=== PATIENT | female | born 1955 | race Caucasian/White ===

== ENCOUNTER → 2018-09-18 | Outpatient (CLI) | payer MEDICARE, OTHER | LOC: YCFC.O 11:09 | PROVIDERS: ATTEND Nurse Practitioner | DX: Z00.00 Encounter for general adult medical examination without abnormal findings (principal); I10 Essential (primary) hypertension ==

== ENCOUNTER → 2018-10-30 | Outpatient (CLI) | payer MEDICARE, OTHER ==
--- NOTE | 2018-11-02 08:41 | MAM ---
EXAM DESCRIPTION: 3D Screening BILATERAL : Digital Mammography. CLINICAL HISTORY: 62 years Female ANNUAL SCREENING . No complaints. No personal history of breast cancer. Maternal grandmother with breast cancer. Childbirth. Postmenopausal 10+ years. No HRT. Lifetime risk of developing breast cancer (Tyrer-Cuzick model)(%): 4.9. COMPARISON: Baseline study. No prior reports available. TECHNIQUE: Bilateral CC and MLO projection full-field images, digital tomosynthesis mammographic technique. Bilateral digital 2-D full-field MLO images. CAD not available for tomosynthesis or 2-D images. FINDINGS: The breast parenchymal density pattern is: Scattered areas of fibroglandular density. No skin thickening or nipple retraction. Bilateral solitary microcalcifications. Bilateral axillary lymph nodes. Lateral vascular calcifications. Group of microcalcifications lower mid lateral left breast. Focal asymmetry retroareolar right breast superior and lateral. No focal, stellate mass or density, focal asymmetry , and no suspicious microcalcifications left breast. IMPRESSION: BI-RADS CATEGORY: 0 - INCOMPLETE- Need additional imaging evaluation. FOLLOW-UP: Recall for additional imaging: Targeted right breast Retroareolar ultrasound. Optional diagnostic tomosynthesis if indicated by ultrasound images.. Written communication concerning the IMPRESSION and Follow-up, will be mailed to the patient and referring health care provider. Electronically signed by: Ryne Brady MD 11/02/2018 8:40 AM CDT
== END ==
LOC: MAMMO 08:37
PROVIDERS: ATTEND Nurse Practitioner
DX: Z12.31 Encounter for screening mammogram for malignant neoplasm of breast (principal)

== ENCOUNTER → 2018-11-07 | Outpatient (CLI) | payer MEDICARE, OTHER ==
--- NOTE | 2018-11-08 11:27 | US ---
EXAM DESCRIPTION: Breast,Right: Ultrasound CLINICAL HISTORY: 62 yearsFemaleABNORMAL MAMMO . Focal asymmetry retroareolar right breast COMPARISON: Other TECHNIQUE: Transcutaneous scanning of the right breast utilizing lynne-scale and Doppler modes. Scanning performed by the securities research analyst and Dr. Brady. FINDINGS: Ultrasound: Scanning of the retroareolar right breast. Heterogeneous of fibroglandular and fatty echoes. No dominant solid mass or distinct cyst. No parenchymal edema or large calcifications. No overlying skin changes. IMPRESSION: Benign exam. BIRAD CATEGORY: 2 BENIGN FINDINGS. RECOMMENDATIONS: FOLLOW UP: Return to routine digital bilateral mammographic screening, one year interval from October 2018. Written communication explaining the IMPRESSION and follow-up, will be mailed to the patient and referring health care provider. The FINDINGS and the FOLLOW-UP plan were reviewed in person with the patient after the examination. According to the [employer], yearly mammograms are recommended starting at age 40 and continuing as long as a woman is in good health. Any breast change noted on a breast self-exam should be reported promptly to the patient's healthcare provider. Breast MRI is recommended for women with an approximately 20-25% or greater lifetime risk of breast cancer, including women with a strong family history of breast or ovarian cancer and women who have been treated for Hodgkin's disease. A negative mammographic report should not delay tissue diagnosis in patients with significant clinical history or physical findings. Extremely dense breast tissue limits the sensitivity of digital mammography. Electronically signed by: Ryne Brady MD 11/08/2018 11:26 AM CDT
== END ==
LOC: US 13:00
PROVIDERS: ATTEND Nurse Practitioner
DX: R92.8 Other abnormal and inconclusive findings on diagnostic imaging of breast (principal)

== ENCOUNTER → 2018-11-22 | Outpatient (CLI) | payer MEDICARE, OTHER ==
--- NOTE | 2018-11-22 12:57 | RAD ---
EXAM DESCRIPTION: Hip,Left 2 Views CLINICAL HISTORY: 62 years Female, PAIN IN LEFT HIP COMPARISON: None available. FINDINGS: The visualized bones are well-mineralized.No acute fracture or dislocation. Severe left hip osteoarthritis with [id number] appearance. Enthesopathy changes of the greater trochanter and iliac crest are identified. The soft tissues appear grossly unremarkable. IMPRESSION: Severe left hip osteoarthritis with [id number] appearance. Electronically signed by: Virginia Bentley MD 11/22/2018 12:55 PM CDT
== END ==
LOC: YCFC.O 11:05
PROVIDERS: ATTEND Nurse Practitioner
DX: M16.12 Unilateral primary osteoarthritis, left hip (principal)

== ENCOUNTER → 2018-12-07 | Outpatient (CLI) | payer MEDICARE, OTHER ==
--- NOTE | 2018-12-08 20:00 | RAD ---
EXAM DESCRIPTION: Pelvis: CR/DR/XR CLINICAL HISTORY: HIP PAIN COMPARISON: Left hip radiographs 11/22/2018. TECHNIQUE: One view FINDINGS: Enthesopathy pelvis and proximal femurs. Decreased bone density. Marked narrowing of the superior left hip joint with marginal spurs. Minimal narrowing right superior hip joint with marginal spurs. Degenerative gas density in the bilateral SI joints. Bladder stimulation device abutting the right pelvic bone. L4-5 and L5-S1 spondylosis. Pubic bone offset. IMPRESSION: Bilateral hip arthrosis more advanced on the left. Also SI joint arthrosis. Pelvic bone enthesopathy. Lower lumbar spondylosis. No acute bony abnormality. Electronically signed by: Ryne Brady MD 12/08/2018 7:58 PM CDT
== END ==
LOC: RAD 08:39
PROVIDERS: ATTEND Orthopaedic Surgery
DX: M16.0 Bilateral primary osteoarthritis of hip (principal); M47.896 Other spondylosis, lumbar region; M47.897 Other spondylosis, lumbosacral region; M47.898 Other spondylosis, sacral and sacrococcygeal region; M77.9 Enthesopathy, unspecified

== ENCOUNTER → 2018-12-17 | Outpatient (CLI) | payer MEDICARE, OTHER | LOC: LAB.O 09:51 | PROVIDERS: ATTEND Orthopaedic Surgery | DX: Z01.818 Encounter for other preprocedural examination (principal) ==

== ENCOUNTER → 2018-12-18 | Outpatient (CLI) | payer MEDICARE, OTHER ==
--- NOTE | 2018-12-18 17:39 | RAD ---
History: Preoperative evaluation. Chest x-ray: PA and lateral views are obtained. A prior study is not available for comparison. The cardiac silhouette is upper normal. Mediastinal contour is within normal limits. No pulmonary infiltrate or significant effusion. Degenerative changes thoracic spine with mild diffuse osteopenia. IMPRESSION: No active process in the chest. Electronically signed by: Lucia Miller MD 12/18/2018 5:38 PM CDT Workstation: [id number]
== END ==
LOC: YCFC.O 11:02
PROVIDERS: ATTEND Nurse Practitioner
DX: Z01.818 Encounter for other preprocedural examination (principal)

== ENCOUNTER → 2019-03-26 | Outpatient (CLI) | payer MEDICARE, OTHER ==
--- NOTE | 2019-03-26 09:31 | RAD ---
EXAM DESCRIPTION: Chest,2 Views CLINICAL HISTORY: PRE-SURGERY EVALUATION COMPARISON: Previous study December 18, 2018 TECHNIQUE: PA/lateral FINDINGS: There is no acute appearing cardiac or pulmonary abnormality. Heart size is prominent with normal pulmonary vascularity. No pleural effusion or pneumothorax. Lungs are clear with no consolidating infiltrate. Lateral view shows intact sternum and spurring in the mid to lower T-spine. IMPRESSION: No acute process is identified in the chest. Electronically signed by: Luis Felipe Juarez MD 03/26/2019 9:30 AM [facility]
== END ==
LOC: LAB.O 08:54
PROVIDERS: ATTEND Nurse Practitioner
DX: Z01.818 Encounter for other preprocedural examination (principal)

== ENCOUNTER → 2020-04-27 | Outpatient (CLI) | payer MEDICARE, OTHER | LOC: YCFC.O 14:49 | PROVIDERS: ATTEND Nurse Practitioner | DX: I10 Essential (primary) hypertension (principal); E78.5 Hyperlipidemia, unspecified ==